=== PATIENT | female | born 1955 | race Caucasian/White ===

== ENCOUNTER 2016-09-11 10:53 | Emergency (ER) | payer BC ==
[2016-09-11 11:05] VITALS: BP 148/79
[2016-09-11] MEDS ORDERED: traMADol TAB* 50 MG ONE (12:11)
[2016-09-11] MEDS ORDERED: traMADol TAB* 50 MG PO ONE ×2 (12:32→15:42)
--- NOTE | 2016-09-11 12:36 | RAD ---
Indication: LEFT lower leg pain and ankle swelling following inversion injury. Comparison: None. Technique: AP, lateral, and oblique views LEFT ankle and AP and lateral views LEFT lower leg. Report: Spiral fracture at the junction of the distal diaphysis and distal metaphysis of the fibula with one cortex width lateral displacement. Suggestion of a nondisplaced avulsion fracture at the medial malleolus. Coronal oriented fracture at the posterior margin of the tibial plafond with up to 0.4 cm articular surface incongruity due to cephalad displacement. Talocrural joint effusion. The ankle mortise remains congruent. Negative for more proximal fracture of the tibia or fibula. Mild osteoarthritis at the knee and ankle. Moderate plantar fascial origin bone spur. Soft tissue swelling about the ankle. IMPRESSION: Thompson type C fracture pattern fibular fracture above the level of the ankle joint. Negative for widening of the ankle mortise. Associated nondisplaced medial malleolus avulsion fracture and cephalad displaced posterior tibial plafond fracture. Negative for proximal fracture of the fibula tibia.
--- NOTE | 2016-09-11 14:31 | RAD ---
INDICATION: Traumatic fracture left ankle. COMPARISON: Correlation is made with a prior x-ray study of the left ankle from September 11, 2016. TECHNIQUE: Contiguous axial sections were obtained of the left ankle. Images were reconstructed in the sagittal and coronal planes. FINDINGS: There is an oblique fracture of the distal diaphysis of the fibula which is minimally comminuted. The distal fragment is displaced posterior one cortical diameter. There is a comminuted fracture of the posterior malleolus of the tibia which runs in a coronal plane and extends into the posterior aspect of the medial malleolus. The fracture fragments are slightly distracted. There is also a small avulsion fracture fragment present along the anterior inferior lateral aspect of the distal tibia possibly in the region of the anterior inferior tibiofibular ligament. The avulsion fracture fragment is distracted and measures 6 x 6 x 4 mm in size. The tibiotalar joint space appears maintained. No additional fractures are seen. There are a couple small bubbles of air present in the soft tissues adjacent to the distal medial aspect of the tibia. IMPRESSION: 1. OBLIQUE SLIGHTLY DISPLACED FRACTURE OF THE DISTAL DIAPHYSIS OF THE FIBULA. 2. COMMINUTED DISPLACED FRACTURE OF THE POSTERIOR MALLEOLUS WITH EXTENSION INTO THE POSTERIOR ASPECT OF THE MEDIAL MALLEOLUS. 3. SMALL DISPLACED AVULSION FRACTURE FRAGMENT ARISING FROM THE ANTERIOR INFERIOR LATERAL ASPECT OF THE TIBIA. 4. SMALL BUBBLES OF AIR IN THE SOFT TISSUES SUGGESTING THE POSSIBILITY OF AN OPEN FRACTURE OR LACERATION INJURY. RECOMMEND CLINICAL CORRELATION.
[2016-09-11] MEDS ORDERED: Al Hydrox/Mg Hydrox/Simet LIQ* 30 ML UDC PO ONE (15:43)
--- NOTE | 2016-09-11 16:54 | ED ---
Lower Extremity - HPI Summary HPI Summary: Patient arrives to ED 1 hour after falling on the ice. Denies LOC or hitting her head. States she ma have inverted her ankle. Feels pain on the medial and lateral side of the ankle and slightly above the deltoid muscle. Denies pain in the upper part of the leg, or upper extremeties. Patient is tearful and states pain is 10/10. - History of Current Complaint Chief Complaint: EDExtremityLower Stated Complaint: LT ANKLE PAIN Time Seen by Provider: 09/11/16 11:23 Hx Obtained From: Patient Mechanism Of Injury: Fall From Height Of: Onset of Pain: Immediate Onset/Duration: Minutes Severity Initially: Severe Severity Currently: Severe Pain Intensity: 8 Pain Scale Used: 0-10 Numeric Timing: Constant Location: Is Discrete @ - left medial and lateral malleolus and deltoid area of ankle Character Of Pain: Sharp, Aching Associated Signs And Symptoms: Positive: Swelling, Redness, Bruising Aggravating Factor(s): Standing, Ambulation Alleviating Factor(s): Rest Able to Bear Weight: No - Risk Factors Gout Risk Factors: Age Over 40 DVT Risk Factors: Negative Septic Arthritis Risk Factor: Negative - Allergies/Home Medications Allergies/Adverse Reactions: Allergies Allergy/AdvReac Type Severity Reaction Status Date / Time Codeine Allergy Nausea Verified 09/11/16 12:55 PMH/Surg Hx/FS Hx/Imm Hx Previously Healthy: Yes Infectious Disease History: No Infectious Disease History: Denies: Traveled Outside the [place] in Last 30 Days - Social History Occupation: Employed Full-time Lives: With Family Alcohol Use: None Substance Use Type: Reports: None Smoking Status (MU): Never Smoked Tobacco Review of Systems Constitutional: Negative Positive: Photophobia Cardiovascular: Negative Respiratory: Negative Positive: Myalgia, Decreased ROM, Edema, Other - of l ankle and foot Positive: Bruising Neurological: Negative Psychological: Normal All Other Systems Reviewed And Are Negative: Yes Physical Exam Triage Information Reviewed: Yes Vital Signs On Initial Exam: Initial Vitals Temp Pulse Resp BP Pulse Ox 99.3 F 62 18 148/79 100 09/11/16 11:01 09/11/16 11:01 09/11/16 11:01 09/11/16 11:01 09/11/16 11:01 Appearance: Positive: Well-Appearing, No Pain Distress, Well-Nourished Skin: Positive: Warm Head/Face: Positive: Normal Head/Face Inspection Eyes: Positive: Normal, EOMI, BLAIR ENT: Positive: Hearing grossly normal Neck: Positive: Supple, Nontender, No Lymphadenopathy Respiratory/Lung Sounds: Positive: Clear to Auscultation, Breath Sounds Present Cardiovascular: Positive: Normal Musculoskeletal: Positive: Strength/ROM Intact, Limited @, Abnormal @ - medial and lateral malleolar pain radiating 2cm above deltoid into fibular area., Pain @ Neurological: Positive: Normal Psychiatric: Positive: Normal Diagnostics - Vital Signs Vital Signs Temp Pulse Resp BP Pulse Ox 09/11/16 11:01 99.3 F 62 18 148/79 100 - Laboratory Lab Statement: Any lab studies that have been ordered have been reviewed, and results considered in the medical decision making process. - Radiology No standard instances Xray Interpretation: Positive (See Comments) - tabor C fracture pattern fibular fx above level of ankle joint. non-displaced medial malleolus avulsion fx and cephalad displaced posterior tibial plafond fx. Radiology Interpretation Completed By: Radiologist Lower Extremity Course/Dx - Course Course Of Treatment: xray. tramadol given. dr. robbin whipple consulted. xray shows: tabor C fracture pattern fibular fx above level of ankle joint. non- displaced medial malleolus avulsion fx and cephalad displaced posterior tibial plafond fx. CT recommended. posterior splint with sugar tong. crutches and follow up in 2 days. tramadol and zofran given as prescription - Diagnoses Differential Diagnosis/HQI/PQRI: Positive: Fracture (Closed), Fracture (Open) Provider Diagnoses: Nondisplaced fracture of medial malleolus - Physician Notifications Instructed by Provider To: Have Pt Call For Appt. - Dr. Whipple Discharge - Discharge Plan Condition: Stable Disposition: HOME Prescriptions: Ondansetron TAB* [Zofran Tab*] 4 mg PO Q6H PRN #20 tab MDD 4 PRN Reason: Nausea traMADol TAB* [Ultram*] 50 mg PO Q6HR PRN #20 tab MDD 4 PRN Reason: Pain traMADol TAB* [Ultram*] 50 mg PO Q6HR PRN #30 tab MDD 4 PRN Reason: Pain Patient Education Materials: Ankle Fracture (ED) Referrals: Santo Whipple MD [Medical Doctor] - Yuridia Solis MD [Primary Care Provider] - Additional Instructions: Elevate above heart as much as possible. Tramadol as needed for pain. Toe touch OK after 24 hours, do not bear weight. Use crutches for relief and for transport. Follow up with Dr. Whipple on . Call today for appt. May take ibuprofen for relief of pain and inflammation.
--- NOTE | 2016-09-22 20:54 | DS ---
DISCHARGE SUMMARY: DATE OF ADMISSION: 09/21/16 DATE OF DISCHARGE: 09/22/16 Attending: Santo Cespedes MD PRINCIPAL DIAGNOSIS: Left ankle fracture ORIF, vertigo DISCHARGE DIAGNOSIS: Left ankle fracture ORIF, vertigo HOSPITAL COURSE: Ms. Toth is a 61-year-old female who suffered a left ankle fracture on 09/11/16 after she slipped on pavement. She was admitted on and underwent ORIF of the left ankle. She tolerated the surgery well with no complications. She was kept overnight for observation for dizziness and severe nausea and was kept nonweightbearing. Her hospital course was unremarkable and at the time of discharge, she was afebrile, she was able to transfer using assistive devices and her splint was intact. DISCHARGE MEDICATIONS: 1. Ibuprofen. 2. Percocet. 3. Keflex. 4. Omeprazole. 5. Vitamin D. 6. Flovent. 7. Fluticasone. PHYSICAL EXAMINATION: Upon discharge, she was afebrile. Her vital signs are stable. The splint was intact and dry. She is able to wiggle her toes. She has good capillary refill. She has intact sensation overall of the toes. She is overall neurovascularly intact. DISCHARGE INSTRUCTIONS: She is discharged to home. She is being kept nonweightbearing. Instructed to keep the splint dry and intact until her followup appointment with Dr. Cespedes in 1 week. She is asked to take Keflex 500 mg 4 times a day for 5 days. She was also sent Percocet to her pharmacy for postoperative pain control. She can call our office with any questions. Otherwise, she will follow with Dr. Cespedes in 1 week. EDDIE PADILLA [id number]/[facility] #: [id number] FIONA
== END 2016-09-11 16:50 | disposition home or self-care (01) ==
LOC: ED 10:53 → MERGE 10:53 → ED 16:50
DX: S82.52XA Displaced fracture of medial malleolus of left tibia, initial encounter for closed fracture (principal); W00.0XXA Fall on same level due to ice and snow, initial encounter; Y92.9 Unspecified place or not applicable; Z88.5 Allergy status to narcotic agent
CPT/HCPCS: 29515; 99282; A9270-GY

== ENCOUNTER 2016-09-21 08:38 | Observation (INO) | payer BC ==
[~2016-09-21 08:38] MED LIST: Buffered Lidocaine 1% SYR 3ML* 3 ML/SYR SYRINGE INTRADERM ONE; Dexamethasone IV* 4 MG/ML 1 ML (4 MG) IV SLOW PU ONE; Famotidine IV* 10 MG/ML 2 ML (20 mg) IV ONE; Scopolamine 1.5 mg* PATCH TRANSDERM ONE
[2016-09-21] MEDS ORDERED: Dexamethasone IV* 4 MG/ML 1 ML (4 MG) ONE (09:05)
[2016-09-21] MEDS ORDERED: Famotidine IV* 10 MG/ML 2 ML (20 mg) ONE (09:05)
[2016-09-21] MEDS ORDERED: ceFAZolin 2 GM PREMIX (*) 2 GM/50 ML BAG IVPB ONE (09:06)
[2016-09-21] MEDS ORDERED: Buffered Lidocaine 1% SYR 3ML* 3 ML/SYR SYRINGE ONE (09:06)
[2016-09-21] MEDS ORDERED: Scopolamine 1.5 mg* PATCH ONE (09:06)
[2016-09-21] MEDS ORDERED: Bupivacaine 0.5% W/EPI SDV* 30 ML VIAL ONE (09:38)
[2016-09-21] MEDS ORDERED: Ketorolac INJ* 30 MG/ML 1 ML VIAL ONE (09:46)
[2016-09-21] MEDS ORDERED: Lidocaine 2% MPF* 2 ML VIAL ONE (09:46)
[2016-09-21] MEDS ORDERED: Propofol* 10 MG/ML 20 ML BTL IV PUSH ONE (09:46)
[2016-09-21] MEDS ORDERED: Midazolam* 1 MG/ML 2 ML VIAL (2 MG) ONE (09:47)
[2016-09-21] MEDS ORDERED: fentaNYL* 50 MCG/ML 2 ML VIAL (100 MCG VIAL) ONE ×5 (09:47→14:56)
[2016-09-21] MEDS ORDERED: KETAMINE HCL* 50 MG/ML 10 ML VIAL ONE (10:37)
[2016-09-21] MEDS ORDERED: PROCHLORPERAZINE INJ 5 MG/ML 2 ML VIAL IV PRN (10:54)
[2016-09-21] MEDS ORDERED: oxyCODONE/Acetamin 5/325 MG* TAB PO PRN ×2 (10:54→19:07)
[2016-09-21] MEDS ORDERED: Ondansetron INJ* 2 MG/ML VIAL ONE ×2 (12:20→19:22)
--- NOTE | 2016-09-21 14:00 | RAD ---
INDICATION: Traumatic fracture left ankle operative reduction and internal fixation. COMPARISON: Comparison is made with a prior x-ray study of the left ankle from 09/11/2016. TECHNIQUE: 58.3 seconds of intermitted fluoroscopic guidance were provided and 10 spot films of the left ankle were obtained in the operating room. FINDINGS: The films demonstrate operative reduction and internal fixation of a fracture of the distal diaphysis of the fibula. There are 2 interfragmentary screws present and a sideplate present along the lateral aspect of the distal fibula transfixed with multiple screws. The bones are in normal alignment. Note is also made of a slightly displaced fracture of the posterior malleolus. IMPRESSION: INTRAOPERATIVE CONTROL FILMS. CPT II Codes: 6045F
[2016-09-21] MEDS ORDERED: PROCHLORPERAZINE INJ 5 MG/ML 2 ML VIAL ONE (14:03)
[2016-09-21] MEDS: fentaNYL* 50 MCG/ML 2 ML VIAL (100 MCG VIAL) IV PRN ×3 (14:06→14:59)
[2016-09-21] MEDS ORDERED: Meclizine TAB* 12.5 MG PO ONE (15:15)
[2016-09-21] MEDS ORDERED: oxyCODONE/Acetamin 5/325 MG* TAB ONE (17:34)
[2016-09-21] MEDS ORDERED: diPHENhydraMINE IV* 50 MG/ML 1 ml VIAL (BENADRYL) IV PRN (18:58)
[2016-09-21] MEDS ORDERED: Ondansetron TAB* 4 MG PO PRN (18:58)
[2016-09-21] MEDS ORDERED: Ondansetron INJ* 2 MG/ML VIAL IV PRN (18:58)
[2016-09-21] MEDS ORDERED: Ibuprofen TAB* 600 MG ONE (19:25)
[2016-09-21] MEDS: Ibuprofen TAB* 600 MG PO PRN (19:26)
[2016-09-21] MEDS ORDERED: ceFAZolin 1 GM in Dextrose (*) 1 GM/50 ML BAG IVPB ONE (19:39)
[2016-09-21] MEDS: ceFAZolin 1 GM in Dextrose (*) 1 GM/50 ML BAG IVPB SCH (19:51)
[2016-09-22] MEDS: ceFAZolin 1 GM in Dextrose (*) 1 GM/50 ML BAG IVPB SCH (04:11)
[2016-09-22] MEDS: Ibuprofen TAB* 600 MG PO PRN (08:07)
--- NOTE | 2016-09-22 08:48 | PN ---
Progress Note - Progress Note SOAP: Subjective: pt resting comfortably with no complaints; no dizziness/nausea improved Objective: Vital Signs Temp Pulse Resp BP Pulse Ox 97.8 F 61 16 112/49 94 09/22/16 02:09 09/22/16 02:09 09/22/16 02:09 09/22/16 02:09 09/22/16 02:09 incisiion: c/d/i; splint intact and dry PE: able to move toes, intact sensation, good capillary refill Assessment: s/p ORIF left ankle Plan: 1) NWB- continue PT/OT 2) SCD/s for DVT prophylaxis 3) home today; F/U with Coy in 1 wwek
--- NOTE | 2016-09-22 10:13 | OP ---
OPERATIVE REPORT: DATE OF OPERATION: 09/21/16 DATE OF : 51 SURGEON: Santo Cespedes MD ASBESTOS COVERER: EDDIE Finley ANESTHESIA: General, local. ANTIBIOSIS: Ancef IV 2 g. PRE-OP DIAGNOSES: 1. Left ankle lateral malleolus fracture. 2. Left ankle posterior malleolus fracture. POST-OP DIAGNOSES: 1. Left ankle malleolus fracture. 2. Left ankle posterior malleolus fracture. PROCEDURE PERFORMED: Left ankle open reduction internal fixation, lateral malleolus. IV FLUIDS: See Anesthesia note. COMPLICATIONS: None. TOURNIQUET TIME: 134 minutes at 300 mmHg. ESTIMATED BLOOD LOSS: Minimal. IMPLANTS: A 10 hole Synthes one-third tubular plate, 3 screws proximal and 3 distal to the fracture site through the plate, some of the distal screws being locking, but the rest being nonlocking. Those screws were all 3.5 or 4.0 mm in caliber. Two interfragmentary 2.7 mm fully threaded screws were also placed. 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 She was holding a grandchild at that time. X-rays demonstrated a spiral type SER fracture, tabor C, of the fibula, displaced. It is well x-rayed, but better on CT, demonstrated a posterior malleolus fracture. Some fracturing in the posterior medial tibia with nondisplaced or displaced less than 1 mm. There was one fragment of the posterolateral tibia, approximately 20% of the articular surface or less, that was displaced 3 mm. There was also an avulsion fracture of the anterolateral aspect of the tibia near where there were AITFL inserts. The patient opted for surgical management. The plan was for open reduction internal fixation of the lateral malleolus. The plan was to evaluate and treat to see if syndesmotic fixation was required and to see if posterior malleolar fixation was required. DESCRIPTION OF PROCEDURE: Preoperative written consent was obtained. Operative extremity was marked in preoperative holding. The patient was taken back to the operating room and placed supine on operating room table. The patient was sedated and intubated. The patient was placed in a lazy lateral position and a rhodes bag was insufflated. All bony prominences were padded. The left lower extremity was prepped and draped. A surgical time out was performed. Before prep and drape a tourniquet was placed about the left proximal thigh. The left leg had under it placed a bone foam support device. After a prep and drape, surgical time out was performed. Esmarch was applied and the tourniquet was elevated at 300 mmHg. A large C-arm was brought in and draped. An incision was made over the posterior aspect of the lateral malleolus and more proximally up to the distal fibula shaft. This ran for approximately 12-13 cm laterally. Sharp dissection using scissors was performed from skin down to bone. No nerve, superficial, peroneal or other was countered during the dissection. The fibular fracture site was cleaned out using a curette and some irrigation. Bone clamps were used to manipulate the bone and reduce that well. Bone clamp was placed across the fracture site, reduced. One lag screw, 3.5 mm was placed from anterior to posterior. The fixation was not excellent. Therefore, lag screws across the fracture site were placed from posterior to anterior. Two of these screws were placed. Each with a 2.7 mm screw using a standard lag technique. The anterior screw was removed because its bite was not as good to minimize the amount of hardware in bone. Several length plates were templated on bone using the C-arm. The 10- hole plate was most appropriate. The plate was contoured with the distal aspect of it bent and some internal rotation built into the plate. One screw proximal and one screw distal was placed. X-rays confirmed excellent placement of the plate proximal to distal. The remainder of the screw holes were filled in, three proximal and three distal. Distally, I used locking screws. After a full hardware construct had been placed, I then performed an external rotation stress test. There was perhaps 1 mm of opening medially. A tiny bit of obliquity of the medial clear space, but no significant increase of medial clear space. Cotton test revealed no widening tibial fibular overlap or clear space. Therefore, the decision was made that the patient did not require syndesmotic screw. We then imaged the posterior malleolus. It appeared that it had reduced partially. The displacement of the posterior malleolar fragment or rather the posterolateral malleolar fragment appeared to only be approximately 1 mm, significantly improved from preoperative. We considered going posterior and had good visualization of that approach, but decided given the minimal displacement not that this was required. Since the syndesmotic screw was not required, we placed one additional screw distal to the fracture site through the plate for a total of three distal to the fracture site. Final films were taken. Irrigation. A closure of some deep fascia with figure-of- eight stitches using Vicryl 2-0 suture. Closure of the subcutaneous tissue with buried simple stitches using Vicryl 3-0 suture. Closure of the skin with nylon 4-0 suture using a running alternating stitch. Xeroform, 4 x 4's, ABD, sterile Webril, nonsterile Webril. A posterior and sugar tong splint placed. Tourniquet was dropped. The patient was awakened and extubated and brought to the PACU. DISPOSITION: The patient will be nonweightbearing or touch down weightbearing left lower extremity with crutches or walker. Percocet, Keflex, aspirin. Follow up in clinic 10 to 14 days postoperative. [id number]/[facility] #: [id number] FIONA
[2016-09-22 13:25] VITALS: BP 125/68
[2016-09-24] MEDS ORDERED: Scopolamine PATCH Remove* 1 NOTE MISC PATCH OFF ONE (06:00)
--- NOTE | 2016-10-30 07:33 | DS ---
DISCHARGE SUMMARY: DATE OF ADMISSION: 09/21/16 DATE OF DISCHARGE: 09/22/16 SURGEON: Santo Cespedes MD. PRINCIPAL DIAGNOSES: 1. Left ankle lateral malleolus fracture. 2. Left ankle posterior malleolus fracture. DISCHARGE DIAGNOSES: 1. Left ankle lateral malleolus fracture. 2. Left ankle posterior malleolus fracture. HISTORY OF PRESENT ILLNESS: Ms. Toth is a 61-year-old female who suffered a bimalleolar left ankle fracture requiring surgery. She was admitted to the hospital on 09/21/16 and underwent an ORIF of the left ankle. HOSPITAL COURSE: Ms. Toth is a 61-year-old female who was admitted electively to the hospital on 09/21/16 and underwent an ORIF of the left ankle by Dr. Cespedes. She tolerated the procedure well. Postoperatively, she was kept nonweightbearing. Her hospital course was unremarkable and at the time of discharge on 09/22/16, she was afebrile and her splint was clean, dry, and intact. Her vital signs were stable and she was discharged home. MEDICATIONS UPON DISCHARGE: 1. Omeprazole. 2. Ibuprofen. 3. Percocet. 4. Keflex. 5. Zofran. 6. Flovent. 7. Tramadol. PHYSICAL EXAMINATION: Upon discharge, she is afebrile. Vital signs are stable. She was able to move her left toes and the splint was intact and dry. She had intact sensation over all the toes. She was able to ambulate well with the aid of a walker. DISCHARGE INSTRUCTIONS: She was discharged home. She was given a prescription for Keflex to take for 5 days as well as pain medication to take as needed. She was instructed to remain nonweightbearing and keep the splint dry and intact until followup visit with Dr. Cespedes in 10 to 14 days. We have asked her to call our office with any questions or concerns prior to that visit. EDDIE PADILLA [id number]/[facility] #: [id number] FIONA
== END 2016-09-22 12:40 | disposition home or self-care (01) ==
LOC: OR 08:38 → SSU 20:31
PROVIDERS: ADMIT Orthopaedic Surgery; ATTEND Orthopaedic Surgery
PROC: 0QSK04Z Reposition Left Fibula with Internal Fixation Device, Open Approach (ICD-10-PCS; principal; 2016-09-21 10:00)
DX: S82.842A Displaced bimalleolar fracture of left lower leg, initial encounter for closed fracture (principal); X58.XXXA Exposure to other specified factors, initial encounter; Y92.89 Other specified places as the place of occurrence of the external cause
CPT/HCPCS: 96374; A9270-GY; C1713; C1776; G0378; G8978-GP-CI; G8979-GP-CI; G8980-GP-CI; J0690; J0780; J1100; J1885; J2250; J2405; J2704; J3010

== ENCOUNTER 2018-03-27 20:34 | Emergency (ER) | payer BC ==
[2018-03-27 20:42] VITALS: BP 144/79
[2018-03-27] MEDS ORDERED: Lidocaine 1%* 5 ML VIAL INJ ONE (20:51)
--- NOTE | 2018-03-27 20:57 | ED ---
Skin Complaint - HPI Summary HPI Summary: 62 female presents with splinter in her left thumb today. States that she was trying to place a stake in a ground with her hand. She states that the splinter broke off and went to her left thumb. She tried remove it she was unable to do so because it is deep. She is not diabetic. She believes her tetanus was within the last 5 years. She is right-handed. She has history of asthma. - History of Current Complaint Chief Complaint: UCSkin Time Seen by Provider: 03/27/18 20:46 Stated Complaint: HAND COMPLAINT Pain Intensity: 5 - Additional Pertinent History Primary Care Physician: ALIE - Allergy/Home Medications Allergies/Adverse Reactions: Allergies Allergy/AdvReac Type Severity Reaction Status Date / Time codeine Allergy N/V, Verified 03/27/18 20:43 DIZZINESS, LIGHTHEADED hydrocodone Allergy N/V, Verified 03/27/18 20:43 DIZZINESS, LIGHTHEADED PMH/Surg Hx/FS Hx/Imm Hx Endocrine/Hematology History: Denies: Hx Diabetes, Hx Thyroid Disease Cardiovascular History: Denies: Hx Hypertension Respiratory History: Reports: Hx Asthma, Other Respiratory Problems/Disorders - CHRONIC POST NASAL DRIP R/T ALLERGY AND ACID REFLUX Denies: Hx Chronic Obstructive Pulmonary Disease (COPD) GI History: Reports: Hx Gastroesophageal Reflux Disease - HYPER ACICITY - CONTROL WITH MEDS Denies: Hx Ulcer Musculoskeletal History: Reports: Hx Arthritis - BILATERAL HANDS, Hx Tendonitis - HX OF IN THUMBS Denies: Hx Rheumatoid Arthritis, Hx Osteoporosis Sensory History: Reports: Hx Contacts or Glasses - GLASSES Denies: Hx Hearing Aid Opthamlomology History: Reports: Hx Contacts or Glasses - GLASSES Neurological History: Reports: Other Neuro Impairments/Disorders - SOMETIMES DIZZINESS R/T ALLERGIES - Cancer History Hx Chemotherapy: No Hx Radiation Therapy: No - Surgical History Surgery Procedure, Year, and Place: AGE 1 BILATERAL INGUINAL HERNIA REPAIR,. AGE 2 TONSILLECTOMY,. 2004 LAPAROSCOPIC [place] [facility] [place] GREAT RIGHT TOE SURGERY,. 2014 [place]COPY, [facility] [place]. 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18 Denies: Hx Clostridium Difficile, Hx Hepatitis, Hx Human Immunodeficiency Virus (HIV), Hx of Known/Suspected MRSA, Hx Known/Suspected VRE, Hx Known/ Suspected VRSA, History Other Infectious Disease, Traveled Outside the [place] in Last 30 Days - Family History Known Family History: Positive: None - Social History Alcohol Use: Occasionally Substance Use Type: Reports: None Smoking Status (MU): Never Smoked Tobacco Review of Systems Negative: Fever Negative: Chest Pain Negative: Shortness Of Breath Positive: Other - splinter left thumb All Other Systems Reviewed And Are Negative: Yes Physical Exam Triage Information Reviewed: Yes Vital Signs On Initial Exam: Initial Vitals Temp Pulse Resp BP Pulse Ox 96.7 F 76 16 144/79 96 03/27/18 20:38 03/27/18 20:38 03/27/18 20:38 03/27/18 20:38 03/27/18 20:38 Vital Signs Reviewed: Yes Appearance: Positive: Well-Appearing Skin: Positive: Warm, Dry Head/Face: Positive: Normal Head/Face Inspection Eyes: Positive: Normal, Conjunctiva Clear ENT: Positive: Pharynx normal Respiratory/Lung Sounds: Positive: Clear to Auscultation, Breath Sounds Present Cardiovascular: Positive: Normal, RRR Musculoskeletal: Positive: Strength/ROM Intact - left thumb, Other - splinter felt at distal phalanx left thumb, capillary refill<2 secs Neurological: Positive: Normal Psychiatric: Positive: Normal Procedures - Procedure Summary Procedure Summary: splinter removal left thumb cleaned area with chlorhexidine performed digital block placed stellate incision 1/2cm by1/4cm superficial foreign body not removed Diagnostics - Vital Signs Vital Signs Temp Pulse Resp BP Pulse Ox 03/27/18 20:38 96.7 F 76 16 144/79 96 - Laboratory Lab Statement: Any lab studies that have been ordered have been reviewed, and results considered in the medical decision making process. Course/Dx - Course Course Of Treatment: 62 female presents with splinter in her left thumb today. States that she was trying to place a stake in a ground with her hand. She states that the splinter broke off and went to her left thumb. She tried remove it she was unable to do so because it is deep. She is not diabetic. She believes her tetanus was within the last 5 years. She is right-handed. She has history of asthma. On exam splinter felt in the distal phalanx of left thumb. discussed with patient and we'll attempt to incise and remove the foreign body. Patient's finger incised and foreign body was not removed. will place on Keflex. Told to do warm soaks to encourge foreign body to come to surface. will give referral to hand surgery. will have follow up about blood pressure as is elevated at this visit. Patient understands and agrees with plan. - Differential Diagnoses - Skin Complaint Differential Diagnoses: Cellulitis, Contact Dermatitis, Foreign Body - Diagnoses Provider Diagnoses: Splinter Discharge - Sign-Out/Discharge Documenting (check all that apply): Patient Departure - Discharge Plan Condition: Good Disposition: HOME Prescriptions: Cephalexin CAP* [Keflex CAP*] 500 mg PO BID #20 cap Patient Education Materials: Soft Tissue Foreign Body (ED) Referrals: Yuridia Solis MD [Primary Care Provider] - Fer Gonzalez MD [Medical Doctor] - Additional Instructions: Take Keflex twice a day for 10 days do warm soaks of area Follow up with hand surgeon Return to ED if develop fever, area of redness spreads, or any new or worsening symptoms - Billing Disposition and Condition Condition: GOOD Disposition: Home
[2018-03-27] MEDS ORDERED: Cephalexin CAP* 500 MG PO ONE (21:32)
== END 2018-03-27 21:35 | disposition home or self-care (01) ==
LOC: UCEAST 20:34
DX: S60.352A Superficial foreign body of left thumb, initial encounter (principal); X58.XXXA Exposure to other specified factors, initial encounter; Y93.89 Activity, other specified; Y92.9 Unspecified place or not applicable; Z88.5 Allergy status to narcotic agent
CPT/HCPCS: 10120; 99212; A9270-GY; G0463